=== PATIENT | female | born 1970 | race Caucasian/White ===

== ENCOUNTER 2019-07-29 19:09 | Observation (INO) | payer BC ==
[~2019-07-29] VITALS: Ht 177.8 cm; Wt 82.4 kg
[~2019-07-29 19:09] MED LIST changes: -ACET500 PO; -Augmentin 875-1 EACH PO; -B Complex-Foli1 EACH PO; -BRAIN MIGHT-DH1 EACH; -Evening Primro500 M1; -GLUC500; -LEVSOD75 PO; -OSTERA TABLET1 EACH; -TRAZ50; -TRAZ50 PO; -VITAMIN D35000 UNIT PO
[2019-07-29] MEDS ORDERED: LEVSOD75 PO ×2 (20:06)
[2019-07-29] MEDS ORDERED: TRAZ50 PO ×2 (20:07)
[2019-07-29 20:24] LABS: BASOPHILS ABSOLUTE AUTO 0.04 K/mm3 (0.00-0.23); BASOPHILS PERCENT AUTO 0 % (0-2); EOSINOPHILS ABSOLUTE AUTO 0.04 K/mm3 (0.00-0.68); EOSINOPHILS PERCENT AUTO 0 % (0-6); Hematocrit 43.9 % (33.0-51.0); Hemoglobin 14.6 g/dL (11.5-16.0); IMMATURE GRAN ABSOLUTE AUTO 0.03 K/mm3 (0.00-0.10); IMMATURE GRAN PERCENT AUTO 0 % (0-1); LYMPHOCYTES ABSOLUTE AUTO 1.34 K/mm3 (0.84-5.20); LYMPHOCYTES PERCENT AUTO 12 % (21-46); MONOCYTES ABSOLUTE AUTO 0.83 K/mm3 (0.16-1.47); MONOCYTES PERCENT AUTO 7 % (4-13); Mean Corpuscular HGB 30.1 pg (26.0-34.0); Mean Corpuscular HGB Conc 33.3 g/dL (31.5-36.5); Mean Corpuscular Volume 91 fL (80-100); Mean Platelet Volume 9.7 fL (9.1-12.4); NEUTROPHILS ABSOLUTE AUTO 9.11 K/mm3 (1.96-9.15); NEUTROPHILS PERCENT AUTO 80 % (41-73); Platelet Count 184 K/mm3 (150-400); RDW Coefficient Variation 11.9 % (11.7-14.2); RDW Standard Deviation 39.9 fL (35.1-46.3); Red Blood Cell Count 4.85 M/mm3 (3.80-5.20); White Blood Cell Count 11.39 K/mm3 (4.00-11.30)
[2019-07-29 20:41] LABS: Source, Urine Clean Catch
[2019-07-29 20:42] LABS: Alanine Aminotransfer (ALT/SGP 19 U/L (12-78); Albumin, Blood 3.9 g/dL (3.4-5.0); Alk Phos 50 U/L (50-136); Anion Gap 7 mmol/L (6-16); Aspartate Aminotrans (AST/SGOT 13 U/L (12-37); Bilirubin, Total 1.5 mg/dL (0.1-1.0); Blood Urea Nitrogen 9 mg/dL (8-24); Bun/Creatinine Ratio 11.2 (12.0-20.0); CO2, Blood 27 mmol/L (21-32); Calcium, Blood 8.7 mg/dL (8.5-10.1); Chloride, Blood 105 mmol/L (98-108); Globulin, Blood 3.8 g/dL (2.2-4.0); Glomerular Filtration Rate >60 (60-); Glucose, Blood 93 mg/dL (70-99); Potassium, Blood 3.9 mmol/L (3.5-5.5); Sodium, Blood 139 mmol/L (136-145); Total Protein, Blood 7.7 g/dL (6.4-8.2)
[2019-07-29 20:43] LABS: Bilirubin, Urine Neg (Neg); Blood, Urine Neg (Neg); Glucose Qualitative, Urine Neg (Neg); Ketones, Urine 2+ (Neg); Leukocyte Esterase, Urine Neg (Neg); Nitrite, Urine Neg (Neg); Protein, Urine 1+ (Neg); Specific Gravity, Urine 1.005 (1.003-1.022); Urobilinogen, Urine NORM (Normal)
[2019-07-29 20:49] LABS: Appearance, Urine Clear (Clear); Color, Urine Yellow (P-Yellow)
[2019-07-30] MEDS ORDERED: VITAMIN D35000 UNIT PO ×2 (00:48)
[2019-07-30] MEDS ORDERED: B Complex-Foli1 EACH PO ×2 (00:48)
[2019-07-30] MEDS ORDERED: GLUC500 ×2 (00:49)
[2019-07-30] MEDS ORDERED: Evening Primro500 M1 ×2 (00:51)
[2019-07-30 05:10] LABS: BASOPHILS ABSOLUTE AUTO 0.04 K/mm3 (0.00-0.23); BASOPHILS PERCENT AUTO 0 % (0-2); EOSINOPHILS ABSOLUTE AUTO 0.08 K/mm3 (0.00-0.68); EOSINOPHILS PERCENT AUTO 1 % (0-6); Hematocrit 39.9 % (33.0-51.0); IMMATURE GRAN ABSOLUTE AUTO 0.02 K/mm3 (0.00-0.10); IMMATURE GRAN PERCENT AUTO 0 % (0-1); LYMPHOCYTES ABSOLUTE AUTO 1.48 K/mm3 (0.84-5.20); LYMPHOCYTES PERCENT AUTO 16 % (21-46); MONOCYTES ABSOLUTE AUTO 0.97 K/mm3 (0.16-1.47); MONOCYTES PERCENT AUTO 10 % (4-13); Mean Corpuscular HGB 29.4 pg (26.0-34.0); Mean Corpuscular HGB Conc 32.6 g/dL (31.5-36.5); Mean Corpuscular Volume 90 fL (80-100); Mean Platelet Volume 10.2 fL (9.1-12.4); NEUTROPHILS ABSOLUTE AUTO 6.74 K/mm3 (1.96-9.15); NEUTROPHILS PERCENT AUTO 72 % (41-73); Platelet Count 153 K/mm3 (150-400); RDW Standard Deviation 39.8 fL (35.1-46.3); Red Blood Cell Count 4.42 M/mm3 (3.80-5.20); White Blood Cell Count 9.33 K/mm3 (4.00-11.30)
--- NOTE | 2019-07-30 05:19 | NUR ---
SHIFT SUMMARY PT ER ADMIT THIS SHIFT FOR DIVERTICULITIS. PT REPORTS THAT HER SYMPTOMS BEGAN ON SUNDAY. SHE REPORTS DIFFUSE ABD PAIN. ABD TENDER WITH PALPATION. BOWEL TONES HYPERACTIVE. SHE REPORTS HER LAST BM WAS YESTERDAY AND STATES IT WAS A NORMAL BM FOR HER. SHE REPORTS HER LAST MEAL AT [facility] 07/29. PT DENIES N/V, BUT DOES REPORT A DECREASE IN HER APPETITIE. PT RECEIVED A FULL LITER OF NS AND HAS THE SECOND LITER INFUSING THIS TIME AT 200 ML/HR. PT RECEIVED ZOSYN IN THE ER AND HAS STARTED CIPRO AND FLAGYL ON THE FLOOR. VITALS ARE STABLE. PT IS INDEPENDENT AND AMBULATORY IN THE ROOM. ALL OF HER OTHER SYSTEMS ARE BENIGN. POSSIBLE DC IN [address] NOTES IF SYMPTOMS IMPROVE. IV TORADOL X1 FOR PAIN. BED IN LOWEST POSITION, CALL LIGHT WITHIN REACH, WILL CONTINUE TO MONITOR AND REPORT TO ONCOMING RN.
--- NOTE | 2019-07-30 15:55 | NUR ---
PT C/O ITCHING TO IV SITE. SCANT SWELLING AND REDNESS NOTED. REPORTED TO DR. RAMOS. NEW ORDERS RECEIVED TO DISCONTINUE INFUSION IF ITCHING PERSISTED AND DISCHARGE PATIENT ON PO ANTIBIOTICS.
[2019-07-30] MEDS ORDERED: Augmentin 875-1 EACH PO ×2 (16:06)
[2019-07-30] MEDS ORDERED: ACET500 PO ×2 (16:06)
--- NOTE | 2019-07-30 16:06 | NUR ---
PT C/O CONTINUED ITCHING AND SWELLING TO SITE. INFUSION STOPPED, FLUSHED WITH 10ML NS AND IV DISCONTINUED. PT REFUSED TO HAVE NEW IV PLACED TO COMPLETE TRANSFUSION.
--- NOTE | 2019-07-30 16:23 | NUR ---
DISCHARGE NOTE PT DISCHARGED AMBULATORY POV WITH SPOUSE AND IN NO ACUTE DISTRESS. IV DISCONTINUED INTACT. PT VERBALIZED UNDERSTANDING OF DISCHARGE AND RX INSTRUCTIONS. [facility] TO CALL PATIENT TO SCHEDULE FOLLOW UP APPT.
== END 2019-07-30 16:26 | disposition home or self-care (01) ==
LOC: ER 19:09 → MEDS 19:10
PROVIDERS: Physician Assistant; ADMIT Hospitalist
DX: K57.32 Diverticulitis of large intestine without perforation or abscess without bleeding (principal); J45.990 Exercise induced bronchospasm; E03.9 Hypothyroidism, unspecified; Z90.710 Acquired absence of both cervix and uterus; Z88.5 Allergy status to narcotic agent; Z91.018 Allergy to other foods; Z79.51 Long term (current) use of inhaled steroids; Z79.899 Other long term (current) drug therapy; Z87.891 Personal history of nicotine dependence
CPT/HCPCS: 36415; 80053; 85025; 96361; 96365; 96367; 96372; 96375; 96376; 99285-25; G0378; J0744; J1170; J1650; J1885; J2543; J7030

== ENCOUNTER → 2019-07-29 | Outpatient (CLI) | payer BC ==
[~2019-07-29] MED LIST: ACET500 PO; ALBU90OI INH; Augmentin 875-1 EACH PO; B Complete1 EACH PO; B Complex-Foli1 EACH PO; BCAA; BRAIN MIGHT-DH1 EACH; CHOL10002 PO; CREATINE MONO; CREATINE PO; CURAMIN PO; Evening Primro500 M1; FISH1000 PO; FLUC150A PO; GLUC500; HYDCOR10 PO; LEVFLO500 PO; LEVSOD75 PO; MULVITMIND PO; NAPR220 PO; OSTERA TABLET1 EACH; POTASSIUM GLUCONATE; POTASSIUM PO; PRIMROSE OIL; PROGESTERONE TOP; PROP30DR BOTHEYES; PROTEIN PO; TRACE MINERAL PO; TRAZ50; TRAZ50 PO; VITAMIN D35000 UNIT PO; [UNRECOGNIZED DRUG - CODE]; [UNRECOGNIZED DRUG - OTHER]; [UNRECOGNIZED DRUG - OTHER]; [UNRECOGNIZED DRUG - OTHER]; [UNRECOGNIZED DRUG - OTHER]; [UNRECOGNIZED DRUG - OTHER]; [UNRECOGNIZED DRUG - OTHER] PO; [UNRECOGNIZED DRUG - OTHER] PO; [UNRECOGNIZED DRUG - OTHER] PO; [UNRECOGNIZED DRUG - OTHER] PO; [UNRECOGNIZED DRUG - OTHER] PO
[2019-07-29 08:21] LABS: BASOPHILS ABSOLUTE AUTO 0.04 K/mm3 (0.00-0.23); BASOPHILS PERCENT AUTO 1 % (0-2); EOSINOPHILS ABSOLUTE AUTO 0.07 K/mm3 (0.00-0.68); EOSINOPHILS PERCENT AUTO 1 % (0-6); Hematocrit 41.7 % (33.0-51.0); Hemoglobin 14.1 g/dL (11.5-16.0); IMMATURE GRAN ABSOLUTE AUTO 0.02 K/mm3 (0.00-0.10); IMMATURE GRAN PERCENT AUTO 0 % (0-1); LYMPHOCYTES PERCENT AUTO 16 % (21-46); MONOCYTES ABSOLUTE AUTO 0.74 K/mm3 (0.16-1.47); MONOCYTES PERCENT AUTO 9 % (4-13); Mean Corpuscular HGB 30.3 pg (26.0-34.0); Mean Corpuscular HGB Conc 33.8 g/dL (31.5-36.5); Mean Corpuscular Volume 90 fL (80-100); Mean Platelet Volume 9.9 fL (9.1-12.4); NEUTROPHILS ABSOLUTE AUTO 5.84 K/mm3 (1.96-9.15); NEUTROPHILS PERCENT AUTO 73 % (41-73); Platelet Count 173 K/mm3 (150-400); RDW Coefficient Variation 12.4 % (11.7-14.2); RDW Standard Deviation 40.4 fL (35.1-46.3); Red Blood Cell Count 4.66 M/mm3 (3.80-5.20); White Blood Cell Count 8.01 K/mm3 (4.00-11.30)
[2019-07-29 08:39] LABS: Alanine Aminotransfer (ALT/SGP 19 U/L (12-78); Albumin, Blood 3.9 g/dL (3.4-5.0); Albumin/Globulin Ratio 1.1 (0.8-1.8); Alk Phos 52 U/L (40-126); Anion Gap 8 mmol/L (6-16); Aspartate Aminotrans (AST/SGOT 13 U/L (12-37); Bilirubin, Total 0.9 mg/dL (0.1-1.0); Blood Urea Nitrogen 15 mg/dL (8-24); Bun/Creatinine Ratio 19.2 (12.0-20.0); CO2, Blood 28 mmol/L (21-32); Calcium, Blood 8.8 mg/dL (8.5-10.1); Chloride, Blood 104 mmol/L (98-108); Creatinine, Blood 0.78 mg/dL (0.40-1.00); Globulin, Blood 3.6 g/dL (2.2-4.0); Glomerular Filtration Rate >60 (60-); Glucose, Blood 86 mg/dL (70-99); Potassium, Blood 4.3 mmol/L (3.5-5.5); Sodium, Blood 140 mmol/L (136-145); Total Protein, Blood 7.5 g/dL (6.4-8.2)
== END | disposition home or self-care (01) ==
LOC: LAB SHORT 08:16 → LAB EV 08:16
PROVIDERS: Physician Assistant Medical
DX: R10.9 Unspecified abdominal pain (principal)
CPT/HCPCS: 80053; 83690; 85025

== ENCOUNTER 2019-09-19 10:29 | Day surgery (SDC) | payer BC ==
[~2019-09-19] VITALS: Ht 177.8 cm; Wt 81.8 kg
[~2019-09-19 10:29] MED LIST changes: +ACET500 PO; +Augmentin 875-1 EACH PO; +B Complex-Foli1 EACH PO; +Evening Primro500 M1; +GLUC500; +LEVSOD75 PO; +TRAZ50 PO; +VITAMIN D35000 UNIT PO
[2019-09-19] MEDS ORDERED: GLUC500 (10:49)
[2019-09-19] MEDS ORDERED: OSTERA TABLET1 EACH (10:50)
[2019-09-19] MEDS ORDERED: BRAIN MIGHT-DH1 EACH (10:50)
[2019-09-19] MEDS ORDERED: TRAZ50 (10:50)
== END 2019-09-19 12:50 | disposition home or self-care (01) ==
LOC: ORSCSDS 10:29
PROVIDERS: Internal Medicine Gastroenterology
PROC: 0DB68ZX Excision of Stomach, Via Natural or Artificial Opening Endoscopic, Diagnostic (ICD-10-PCS; principal; 2019-09-19 11:45)
PROC: 0DJD8ZZ Inspection of Lower Intestinal Tract, Via Natural or Artificial Opening Endoscopic (ICD-10-PCS; principal; 2019-09-19 11:45)
DX: K52.9 Noninfective gastroenteritis and colitis, unspecified (principal); R10.13 Epigastric pain; K29.70 Gastritis, unspecified, without bleeding; Z83.79 Family history of other diseases of the digestive system; K57.30 Diverticulosis of large intestine without perforation or abscess without bleeding; K64.8 Other hemorrhoids; E03.9 Hypothyroidism, unspecified; J45.909 Unspecified asthma, uncomplicated; Z87.891 Personal history of nicotine dependence; Z79.899 Other long term (current) drug therapy
CPT/HCPCS: 88305; 88342; J2250; J2704; J7120

== ENCOUNTER → 2021-04-13 | Outpatient (CLI) | payer BC ==
[~2021-04-13] MED LIST changes: +BRAIN MIGHT-DH1 EACH; +OSTERA TABLET1 EACH; +TRAZ50
[2021-04-13 18:16] LABS: BASOPHILS ABSOLUTE AUTO 0.05 K/mm3 (0.00-0.23); BASOPHILS PERCENT AUTO 1 % (0-2); EOSINOPHILS ABSOLUTE AUTO 0.13 K/mm3 (0.00-0.68); EOSINOPHILS PERCENT AUTO 3 % (0-6); Hematocrit 40.2 % (33.0-51.0); Hemoglobin 13.8 g/dL (11.5-16.0); IMMATURE GRAN ABSOLUTE AUTO 0.01 K/mm3 (0.00-0.10); IMMATURE GRAN PERCENT AUTO 0 % (0-1); LYMPHOCYTES ABSOLUTE AUTO 1.74 K/mm3 (0.84-5.20); LYMPHOCYTES PERCENT AUTO 33 % (21-46); MONOCYTES ABSOLUTE AUTO 0.39 K/mm3 (0.16-1.47); MONOCYTES PERCENT AUTO 8 % (4-13); Mean Corpuscular HGB 30.1 pg (26.0-34.0); Mean Corpuscular HGB Conc 34.3 g/dL (31.5-36.5); Mean Corpuscular Volume 88 fL (80-100); NEUTROPHILS ABSOLUTE AUTO 2.91 K/mm3 (1.96-9.15); NEUTROPHILS PERCENT AUTO 56 % (41-73); Platelet Count 159 K/mm3 (150-400); RDW Standard Deviation 38.9 fL (35.1-46.3); Red Blood Cell Count 4.59 M/mm3 (3.80-5.20); White Blood Cell Count 5.23 K/mm3 (4.00-11.30)
[2021-04-13 18:32] LABS: Alanine Aminotransfer (ALT/SGP 23 U/L (12-78); Albumin, Blood 4.2 g/dL (3.4-5.0); Albumin/Globulin Ratio 1.3 (0.8-1.8); Alk Phos 60 U/L (40-126); Anion Gap 9 mmol/L (6-16); Aspartate Aminotrans (AST/SGOT 14 U/L (12-37); Bilirubin, Total 0.4 mg/dL (0.1-1.0); Blood Urea Nitrogen 20 mg/dL (8-24); Bun/Creatinine Ratio 27.4 (12.0-20.0); CO2, Blood 26 mmol/L (21-32); Calcium, Blood 8.5 mg/dL (8.5-10.1); Chloride, Blood 107 mmol/L (98-108); Creatinine, Blood 0.73 mg/dL (0.40-1.00); Globulin, Blood 3.3 g/dL (2.2-4.0); Glomerular Filtration Rate >60 (60-); Glucose, Blood 83 mg/dL (70-99); Potassium, Blood 3.8 mmol/L (3.5-5.5); Sodium, Blood 142 mmol/L (136-145); Thyroid Stimulating Hormone 2.579 uIU/mL (0.360-4.800); Total Protein, Blood 7.5 g/dL (6.4-8.2)
== END | disposition home or self-care (01) ==
LOC: LAB SHORT 18:11 → LAB 18:11
PROVIDERS: Physician Assistant
DX: R53.83 Other fatigue (principal)
CPT/HCPCS: 80053; 84443; 85025